=== PATIENT | male | born 1935 | race Caucasian/White ===

== ENCOUNTER 2019-08-02 17:07 | Emergency (ER) | payer MEDICARE, OTHER ==
[~2019-08-02] VITALS: Ht 177.8 cm; Wt 90.0 kg
--- NOTE | 2019-08-02 17:45 | NUR ---
KIANNA COY, DAUGHTER; [phone]. PLEASE CALL WHEN PT IS READY FOR DISCHARGE
[2019-08-02 18:44] LABS: BASOPHILS # (AUTO) 0.1 X10'3 (0-0.2); BASOPHILS % (AUTO) 0.7 % (0-1); EOSINOPHILS # (AUTO) 0.3 X10'3 (0-0.9); EOSINOPHILS % (AUTO) 4.1 % (0-6); HEMOGLOBIN 13.9 g/dl (14.0-17.9); LYMPHOCYTES # (AUTO) 3.4 X10'3 (1.1-4.8); MEAN CORPUSCULAR HEMOGLOBIN 32.2 PG (27.0-31.0); MEAN CORPUSCULAR HGB CONC 33.9 g/dL (33.0-36.5); MEAN CORPUSCULAR VOLUME 94.8 FL (78-98); MEAN PLATELET VOLUME 7.6 FL (7.4-10.4); MONOCYTES # (AUTO) 0.9 X10'3 (0-0.9); MONOCYTES % (AUTO) 10.5 % (2-12); NEUTROPHILS # (AUTO) 3.6 X10'3 (1.8-7.7); NEUTROPHILS % (AUTO) 43.7 % (42-75); PLATELET COUNT 302 X10'3 (140-440); RED BLOOD COUNT 4.33 X10'6 (4.70-6.10); RED CELL DISTRIBUTION WIDTH 13.9 % (11.5-14.5); WHITE BLOOD COUNT 8.3 X10'3 (4.5-11.0)
[2019-08-02 18:53] LABS: ALANINE AMINOTRANSFERASE 34 U/L (12-78); ALBUMIN 3.7 G/DL (3.4-5.0); ALBUMIN/GLOBULIN RATIO 1.1 (1.1-1.5); ALKALINE PHOSPHATASE 73 IU/L (46-116); ANION GAP 11 (8-16); ASPARTATE AMINO TRANSFERASE 37 U/L (10-37); BILIRUBIN,TOTAL 0.5 MG/DL (0.1-1.0); BLOOD UREA NITROGEN 16 MG/DL (7-18); BUN/CREATININE RATIO 16.5 (5.4-32.0); CALCIUM 9.1 MG/DL (8.5-10.1); CHLORIDE 99 MMOL/L (99-107); CREATININE 0.97 MG/DL (0.60-1.10); GLUCOSE 116 MG/DL (70-104); POTASSIUM 3.9 MMOL/L (3.5-5.1); SODIUM 133 MMOL/L (135-145); TOTAL CARBON DIOXIDE 23.3 MMOL/L (24-32); TOTAL PROTEIN 7.1 G/DL (6.4-8.2); eGFR 74 ML/MIN
[2019-08-02 19:25] VITALS: BP 145/70
== END 2019-08-02 19:25 | disposition home or self-care (01) ==
LOC: ER 17:08
DX: I10 Essential (primary) hypertension (principal); I25.10 Atherosclerotic heart disease of native coronary artery without angina pectoris
CPT/HCPCS: 36415; 71045; 80053; 83880; 84484; 85025; 93005; 99285

== ENCOUNTER 2023-02-17 16:34 | Emergency (ER) | payer MEDICARE, OTHER ==
[~2023-02-17] VITALS: Ht 175.3 cm; Wt 85.0 kg
[2023-02-17 16:45] VITALS: BP 114/63; PULSE 84; RESP 18; TEMP 97.8; O2SAT 98
[2023-02-17] MEDS ORDERED: benzonatate 100mg capsule PO ONE (18:40)
== END 2023-02-17 19:52 | disposition left against medical advice (07) ==
LOC: ER 16:34
DX: J06.9 Acute upper respiratory infection, unspecified (principal); Z20.822 Contact with and (suspected) exposure to COVID-19; I11.0 Hypertensive heart disease with heart failure
CPT/HCPCS: 36415; 71045; 87502; 87503; 87811; 99284

== ENCOUNTER 2023-02-18 15:28 | Inpatient (IN) | payer MEDICARE, OTHER ==
[~2023-02-18] VITALS: Ht 182.9 cm; Wt 84.0 kg
[2023-02-18 17:16] LABS: BASOPHILS % (AUTO) 0.3 % (0-1); EOSINOPHILS % (AUTO) 0 % (0-6); HEMATOCRIT 37.6 % (42.0-52.0); HEMOGLOBIN 12.7 g/dl (14.0-17.9); LYMPHOCYTES # (AUTO) 1.6 X10'3 (1.1-4.8); MEAN CORPUSCULAR HEMOGLOBIN 31.5 PG (27.0-31.0); MEAN CORPUSCULAR HGB CONC 33.8 g/dL (33.0-36.5); MEAN CORPUSCULAR VOLUME 93.2 FL (78-98); MEAN PLATELET VOLUME 7.9 FL (7.4-10.4); MONOCYTES # (AUTO) 1.5 X10'3 (0-0.9); MONOCYTES % (AUTO) 14.6 % (2-12); NEUTROPHILS # (AUTO) 7.1 X10'3 (1.8-7.7); NEUTROPHILS % (AUTO) 69.1 % (42-75); PLATELET COUNT 228 X10'3 (140-440); RED BLOOD COUNT 4.04 X10'6 (4.70-6.10); RED CELL DISTRIBUTION WIDTH 14.2 % (11.5-14.5); WHITE BLOOD COUNT 10.2 X10'3 (4.5-11.0)
[2023-02-18 17:36] LABS: ALANINE AMINOTRANSFERASE 18 U/L (12-78); ALBUMIN 3.1 G/DL (3.4-5.0); ALBUMIN/GLOBULIN RATIO 0.8 (1.1-1.5); ALKALINE PHOSPHATASE 95 IU/L (46-116); ANION GAP 6 (8-16); ASPARTATE AMINO TRANSFERASE 32 U/L (10-37); BILIRUBIN,TOTAL 0.7 MG/DL (0.1-1.0); BLOOD UREA NITROGEN 18 MG/DL (7-18); BUN/CREATININE RATIO 18.6 (10.0-20.0); CALCIUM 9.4 MG/DL (8.5-10.1); CHLORIDE 97 MMOL/L (99-107); CREATININE 0.97 MG/DL (0.60-1.10); GLUCOSE 154 MG/DL (70-104); POTASSIUM 3.8 MMOL/L (3.5-5.1); PRO BRAIN NATRIURETIC PEPTIDE 1267 PG/ML (0-450); SODIUM 130 MMOL/L (135-145); TOTAL CARBON DIOXIDE 27.1 MMOL/L (24-32); TOTAL PROTEIN 6.8 G/DL (6.4-8.2); eCRCL 61 ML/MIN; eGFR 74 ML/MIN
[2023-02-18] MEDS ORDERED: CefTRIAXone 2gm/D5W 50ml BAG 50 ML IV ONE (17:45)
[2023-02-18 18:13] LABS: MAGNESIUM 1.9 MG/DL (1.5-2.4)
[2023-02-19] VITALS (10 sets, daily range): BP systolic 113; BP diastolic 55; PULSE 78–97; RESP 12–22; TEMP 97.1; O2SAT 96–98
[2023-02-19] MEDS ORDERED: diphenhydrAMINE 50 mg/ml inj IV PRN (00:50)
[2023-02-19] MEDS ORDERED: acetaminophen 650mg rectal suppository RC PRN (00:50)
[2023-02-19] MEDS ORDERED: mag hydrox/Alum hydrox/simeth 30ml oral suspension PO PRN (00:50)
[2023-02-19] MEDS ORDERED: diphenhydrAMINE 25mg capsule PO PRN (00:50)
[2023-02-19] MEDS ORDERED: bisacodyl 10mg suppository rectal RC PRN (00:50)
[2023-02-19] MEDS ORDERED: magnesium hydroxide 30ml (MOM) UD suspension PO PRN (00:50)
[2023-02-19] MEDS ORDERED: acetaminophen 325mg tablet PO PRN ×2 (00:50)
[2023-02-19] MEDS ORDERED: ipratropium/albuterol 3ml nebule NEB PRN ×2 (00:50→08:40)
[2023-02-19] MEDS ORDERED: HYDROcodone/acetaminophen 5mg/325mg tablet PO PRN (00:50)
[2023-02-19] MEDS ORDERED: morphine 2 MG/ML inj. syringe IV PRN (00:50)
[2023-02-19] MEDS ORDERED: ondansetron/PF 4mg/2ml inj IV PRN (00:50)
[2023-02-19] MEDS ORDERED: ondansetron 4mg rapidly disintigrating tab PO PRN (00:50)
[2023-02-19] MEDS: normal saline 1000ml 1,000 ML IV SCH ×3 (01:37→23:57)
[2023-02-19 02:04] LABS: APTT 33 SECONDS (22-32); D-DIMER 1.49 MG/L FEU (0-0.50); INR 1.1 INR; PROTHROMBIN TIME 11.5 SECONDS (9.0-12.0)
[2023-02-19 02:13] LABS: MAGNESIUM 1.8 MG/DL (1.5-2.4); PHOSPHORUS 2.2 MG/DL (2.3-4.5)
[2023-02-19] MEDS: heparin, porcine 5000 units/ml vial SQ SCH ×2 (07:50→22:00)
[2023-02-19] MEDS: pantoprazole 40mg Tablet.DR PO SCH (07:50)
[2023-02-19] MEDS: docusate sod 100mg capsule PO SCH ×2 (07:50→22:00)
[2023-02-19] MEDS: CefTRIAXone/D5W-Rocephin 1gm 50 ML IV SCH (07:51)
[2023-02-19] MEDS ORDERED: CefTRIAXone 2gm/D5W 50ml BAG 50 ML IV SCH (08:00)
[2023-02-19] MEDS: azithromycin/NS 500mg/250ml 250 ML IV SCH (09:29)
[2023-02-19] MEDS: predniSONE 20 mg tablet PO SCH (09:29)
[2023-02-19 09:40] LABS: BILIRUBIN,URINE NEGATIVE (Neg); CLARITY,URINE SLIGHTLY CLOUDY (Clear); COLOR,URINE YELLOW (Yellow); GLUCOSE, URINE NEGATIVE (Neg); KETONES,URINE NEGATIVE (Neg); LEUKOCYTE ESTERASE ,URINE TRACE (Neg); NITRITES, URINE NEGATIVE (Neg); OCCULT BLOOD,URINE SMALL (Neg); PROTEIN,URINE TRACE mg/dl (Neg)
[2023-02-19 09:51] LABS: UA COLLECTION TYPE CLN CATCH MIDSTREAM
[2023-02-19 09:52] LABS: HYALINE CASTS 0-3 /LPF (NEGATIVE); MUCUS STRANDS MANY /LPF (Neg); SQUAMOUS EPITHELIAL CELL,UR MODERATE /LPF (FEW)
[2023-02-19 09:53] LABS: BACTERIA,URINE FEW /HPF (Neg)
[2023-02-19] MEDS ORDERED: FINA5TAB11 PO (10:00)
[2023-02-19] MEDS ORDERED: PITA4TAB2 PO ×2 (10:00→10:07)
[2023-02-19] MEDS ORDERED: IRBE300T18 PO (10:00)
[2023-02-19] MEDS ORDERED: FLO0.4C (10:00)
[2023-02-19] MEDS ORDERED: EZET10TA48 PO (10:00)
[2023-02-19] MEDS ORDERED: MEMA10TA56 PO (10:00)
[2023-02-19] MEDS ORDERED: APIX5TAB3 PO (10:00)
[2023-02-19] MEDS ORDERED: AMLO10TA13 PO (10:00)
[2023-02-19] MEDS ORDERED: LABE100T8 PO (10:00)
[2023-02-19] MEDS ORDERED: FLO0.4C PO (10:05)
[2023-02-19] MEDS: ipratropium/albuterol 3ml nebule NEB SCH ×3 (10:05→19:44)
[2023-02-19] MEDS ORDERED: IRBE150T51 PO (10:10)
[2023-02-19] MEDS ORDERED: temazepam 15mg capsule PO PRN (21:00)
[2023-02-20] VITALS (15 sets, daily range): BP systolic 101–128; BP diastolic 56–66; PULSE 64–86; RESP 12–19; TEMP 97.1–98; O2SAT 93–96
[2023-02-20] MEDS: ipratropium/albuterol 3ml nebule NEB SCH ×4 (01:48→19:46)
[2023-02-20] MEDS: normal saline 1000ml 1,000 ML IV SCH ×2 (06:05→18:01)
[2023-02-20 07:13] LABS: BASOPHILS % (AUTO) 0.4 % (0-1); EOSINOPHILS % (AUTO) 0 % (0-6); HEMATOCRIT 33.5 % (42.0-52.0); HEMOGLOBIN 11.5 g/dl (14.0-17.9); LYMPHOCYTES # (AUTO) 1.9 X10'3 (1.1-4.8); LYMPHOCYTES % (AUTO) 27.9 % (21-51); MEAN CORPUSCULAR HEMOGLOBIN 31.8 PG (27.0-31.0); MEAN CORPUSCULAR HGB CONC 34.5 g/dL (33.0-36.5); MEAN CORPUSCULAR VOLUME 92.3 FL (78-98); MEAN PLATELET VOLUME 8.9 FL (7.4-10.4); MONOCYTES # (AUTO) 0.8 X10'3 (0-0.9); MONOCYTES % (AUTO) 11.8 % (2-12); NEUTROPHILS # (AUTO) 4.2 X10'3 (1.8-7.7); NEUTROPHILS % (AUTO) 59.9 % (42-75); PLATELET COUNT 234 X10'3 (140-440); RED BLOOD COUNT 3.63 X10'6 (4.70-6.10); RED CELL DISTRIBUTION WIDTH 14.3 % (11.5-14.5)
[2023-02-20 07:37] LABS: ALANINE AMINOTRANSFERASE 17 U/L (12-78); ALBUMIN 2.3 G/DL (3.4-5.0); ALBUMIN/GLOBULIN RATIO 0.7 (1.1-1.5); ALKALINE PHOSPHATASE 82 IU/L (46-116); ANION GAP 7 (8-16); ASPARTATE AMINO TRANSFERASE 27 U/L (10-37); BILIRUBIN,TOTAL 0.3 MG/DL (0.1-1.0); BLOOD UREA NITROGEN 19 MG/DL (7-18); BUN/CREATININE RATIO 33.3 (10.0-20.0); CHLORIDE 104 MMOL/L (99-107); CREATININE 0.57 MG/DL (0.60-1.10); GLUCOSE 106 MG/DL (70-104); POTASSIUM 3.4 MMOL/L (3.5-5.1); SODIUM 136 MMOL/L (135-145); TOTAL PROTEIN 5.5 G/DL (6.4-8.2); eCRCL 104 ML/MIN; eGFR > 90 ML/MIN
[2023-02-20] MEDS: finasteride 5mg tablet PO SCH (08:00)
[2023-02-20] MEDS: docusate sod 100mg capsule PO SCH ×2 (08:04→19:06)
[2023-02-20] MEDS: CefTRIAXone/D5W-Rocephin 1gm 50 ML IV SCH (08:04)
[2023-02-20] MEDS: pantoprazole 40mg Tablet.DR PO SCH (08:09)
[2023-02-20] MEDS: predniSONE 20 mg tablet PO SCH (08:10)
[2023-02-20] MEDS: apixaban 5mg tablet PO SCH ×2 (08:10→19:06)
[2023-02-20] MEDS: tamsulosin 0.4mg capsule PO SCH ×2 (08:11→19:06)
[2023-02-20] MEDS: memantine 5mg tablet PO SCH ×2 (08:11→19:06)
[2023-02-20] MEDS: amLODIPine 5mg tablet PO SCH (08:12)
[2023-02-20] MEDS: ezetimibe 10mg tablet PO SCH (08:13)
[2023-02-20] MEDS: labetalol 100mg tablet PO SCH ×2 (08:13→19:06)
[2023-02-20] MEDS: azithromycin/NS 500mg/250ml 250 ML IV SCH (08:14)
[2023-02-20] MEDS ORDERED: losartan 50mg tablet PO SCH (21:00)
[2023-02-20] MEDS ORDERED: atorvastatin 20mg tablet PO SCH (21:00)
[2023-02-20 21:27] LABS: OCCULT BLOOD STOOL NEGATIVE (Neg)
[2023-02-21] VITALS (11 sets, daily range): BP systolic 117–132; BP diastolic 55–74; PULSE 63–92; RESP 9–17; TEMP 97.3–98.1; O2SAT 93–96
[2023-02-21] MEDS: ipratropium/albuterol 3ml nebule NEB SCH ×3 (02:49→13:48)
[2023-02-21 06:33] LABS: ALANINE AMINOTRANSFERASE 24 U/L (12-78); ALBUMIN 2.3 G/DL (3.4-5.0); ALBUMIN/GLOBULIN RATIO 0.7 (1.1-1.5); ALKALINE PHOSPHATASE 75 IU/L (46-116); ANION GAP 5 (8-16); ASPARTATE AMINO TRANSFERASE 26 U/L (10-37); BILIRUBIN,TOTAL 0.3 MG/DL (0.1-1.0); BLOOD UREA NITROGEN 19 MG/DL (7-18); BUN/CREATININE RATIO 28.4 (10.0-20.0); CALCIUM 9.1 MG/DL (8.5-10.1); CHLORIDE 107 MMOL/L (99-107); CREATININE 0.67 MG/DL (0.60-1.10); GLUCOSE 104 MG/DL (70-104); POTASSIUM 3.2 MMOL/L (3.5-5.1); SODIUM 138 MMOL/L (135-145); TOTAL CARBON DIOXIDE 26.3 MMOL/L (24-32); TOTAL PROTEIN 5.4 G/DL (6.4-8.2); eCRCL 88 ML/MIN; eGFR > 90 ML/MIN
[2023-02-21 06:52] LABS: BASOPHILS % (AUTO) 0.1 % (0-1); EOSINOPHILS % (AUTO) 0.1 % (0-6); HEMATOCRIT 34.1 % (42.0-52.0); HEMOGLOBIN 11.5 g/dl (14.0-17.9); LYMPHOCYTES # (AUTO) 2.4 X10'3 (1.1-4.8); LYMPHOCYTES % (AUTO) 26.4 % (21-51); MEAN CORPUSCULAR HEMOGLOBIN 31.4 PG (27.0-31.0); MEAN CORPUSCULAR HGB CONC 33.7 g/dL (33.0-36.5); MEAN CORPUSCULAR VOLUME 93.3 FL (78-98); MEAN PLATELET VOLUME 8.2 FL (7.4-10.4); MONOCYTES # (AUTO) 0.8 X10'3 (0-0.9); MONOCYTES % (AUTO) 8.7 % (2-12); NEUTROPHILS # (AUTO) 5.9 X10'3 (1.8-7.7); NEUTROPHILS % (AUTO) 64.7 % (42-75); PLATELET COUNT 295 X10'3 (140-440); RED BLOOD COUNT 3.66 X10'6 (4.70-6.10); RED CELL DISTRIBUTION WIDTH 14.1 % (11.5-14.5); WHITE BLOOD COUNT 9.1 X10'3 (4.5-11.0)
[2023-02-21] MEDS: docusate sod 100mg capsule PO SCH (08:00)
[2023-02-21] MEDS: finasteride 5mg tablet PO SCH (08:00)
[2023-02-21] MEDS: memantine 5mg tablet PO SCH (08:48)
[2023-02-21] MEDS: tamsulosin 0.4mg capsule PO SCH (08:48)
[2023-02-21] MEDS: labetalol 100mg tablet PO SCH (08:48)
[2023-02-21] MEDS: ezetimibe 10mg tablet PO SCH (08:48)
[2023-02-21] MEDS: amLODIPine 5mg tablet PO SCH (08:48)
[2023-02-21] MEDS: pantoprazole 40mg Tablet.DR PO SCH (08:49)
[2023-02-21] MEDS: predniSONE 20 mg tablet PO SCH (08:49)
[2023-02-21] MEDS: azithromycin/NS 500mg/250ml 250 ML IV SCH (08:52)
[2023-02-21] MEDS: CefTRIAXone/D5W-Rocephin 1gm 50 ML IV SCH (08:53)
[2023-02-21] MEDS: apixaban 5mg tablet PO SCH (08:57)
[2023-02-21] MEDS ORDERED: LACT1CAP74 PO (15:02)
[2023-02-21] MEDS ORDERED: CEFD300C3 PO (15:02)
[2023-02-21] MEDS ORDERED: PRED10TA23 PO (15:03)
== END 2023-02-21 16:00 | disposition home or self-care (01) | DRG 871 ==
LOC: ER 15:29 → ED HOLD 02-19 00:53 → PCU 3S 02-19 20:23
PROVIDERS: ADMIT Family Medicine; ATTEND Family Medicine
DX: A41.9 Sepsis, unspecified organism (principal); J18.9 Pneumonia, unspecified organism; J96.01 Acute respiratory failure with hypoxia; E87.1 Hypo-osmolality and hyponatremia; I48.20 Chronic atrial fibrillation, unspecified; I11.0 Hypertensive heart disease with heart failure; E88.09 Other disorders of plasma-protein metabolism, not elsewhere classified; I50.9 Heart failure, unspecified; I25.10 Atherosclerotic heart disease of native coronary artery without angina pectoris; F03.90 Unspecified dementia, unspecified severity, without behavioral disturbance, psychotic disturbance, mood disturbance, and anxiety; N40.0 Benign prostatic hyperplasia without lower urinary tract symptoms; E86.1 Hypovolemia; D64.9 Anemia, unspecified; Z79.01 Long term (current) use of anticoagulants; Z79.899 Other long term (current) drug therapy
CPT/HCPCS: 36415; 71046; 80053; 81001; 82272; 82948; 83605; 83735; 83880; 84100; 84145; 85025; 85379; 85610; 85730; 87040; 87081; 87088; 92508; 92616; 93306; 94640; 94760; 97116; 97161; 97530; 99285; G0378; J0456; J0696; J1644; J7030; J7512

== ENCOUNTER 2023-10-06 13:06 | Inpatient (IN) | payer MEDICARE ==
[~2023-10-06] VITALS: Ht 172.7 cm; Wt 83.2 kg
[~2023-10-06 13:06] MED LIST: AMLO10TA13 PO; APIX5TAB3 PO; EZET10TA48 PO; FINA5TAB11 PO; FLO0.4C PO; IRBE150T51 PO; LABE100T8 PO; LACT1CAP74 PO; MEMA10TA22 PO; PITA4TAB2 PO
[2023-10-06 13:58] LABS: BASOPHILS % (AUTO) 0.3 % (0-1); EOSINOPHILS # (AUTO) 0.1 X10'3 (0-0.9); EOSINOPHILS % (AUTO) 1.4 % (0-6); HEMATOCRIT 39.3 % (42.0-52.0); HEMOGLOBIN 13.2 g/dl (14.0-17.9); LYMPHOCYTES # (AUTO) 2.7 X10'3 (1.1-4.8); LYMPHOCYTES % (AUTO) 30.4 % (21-51); MEAN CORPUSCULAR HEMOGLOBIN 31.9 PG (27.0-31.0); MEAN CORPUSCULAR HGB CONC 33.6 g/dL (33.0-36.5); MEAN CORPUSCULAR VOLUME 95.1 FL (78-98); MEAN PLATELET VOLUME 8.6 FL (7.4-10.4); MONOCYTES # (AUTO) 0.9 X10'3 (0-0.9); MONOCYTES % (AUTO) 9.4 % (2-12); NEUTROPHILS # (AUTO) 5.3 X10'3 (1.8-7.7); NEUTROPHILS % (AUTO) 58.5 % (42-75); PLATELET COUNT 217 X10'3 (140-440); RED BLOOD COUNT 4.13 X10'6 (4.70-6.10); RED CELL DISTRIBUTION WIDTH 13.7 % (11.5-14.5)
[2023-10-06 14:11] LABS: ALANINE AMINOTRANSFERASE 35 U/L (12-78); ALBUMIN 3.6 G/DL (3.4-5.0); ALBUMIN/GLOBULIN RATIO 1.2 (1.1-1.5); ALKALINE PHOSPHATASE 80 IU/L (46-116); ANION GAP 8 (8-16); ASPARTATE AMINO TRANSFERASE 32 U/L (10-37); BILIRUBIN,TOTAL 0.7 MG/DL (0.1-1.0); BLOOD UREA NITROGEN 21 MG/DL (7-18); BUN/CREATININE RATIO 20.4 (10.0-20.0); CALCIUM 9.3 MG/DL (8.5-10.1); CHLORIDE 102 MMOL/L (99-107); CREATININE 1.03 MG/DL (0.60-1.10); GLUCOSE 104 MG/DL (70-104); LIPASE 78 U/L (16-77); SODIUM 135 MMOL/L (135-145); TOTAL CARBON DIOXIDE 25.4 MMOL/L (24-32); TOTAL PROTEIN 6.5 G/DL (6.4-8.2); eCRCL 50 ML/MIN; eGFR 68 ML/MIN
[2023-10-06] MEDS: LidoCAINE 2% Topical Jelly 11mL syringe (UROJET) TOP ONE (14:54)
[2023-10-06 15:22] LABS: BILIRUBIN,URINE NEGATIVE (Neg); CLARITY,URINE CLEAR (Clear); COLOR,URINE YELLOW (Yellow); GLUCOSE, URINE NEGATIVE (Neg); KETONES,URINE NEGATIVE (Neg); LEUKOCYTE ESTERASE ,URINE NEGATIVE (Neg); NITRITES, URINE NEGATIVE (Neg); OCCULT BLOOD,URINE NEGATIVE (Neg); PROTEIN,URINE NEGATIVE (Neg)
[2023-10-06 15:28] LABS: UA COLLECTION TYPE FOLEY CATH
[2023-10-06] MEDS ORDERED: acetaminophen 325mg tablet PO PRN (16:40)
[2023-10-06] MEDS ORDERED: morphine 2 MG/ML inj. syringe IV PRN (16:40)
[2023-10-06] MEDS ORDERED: mag hydrox/Alum hydrox/simeth 30ml oral suspension PO PRN (16:40)
[2023-10-06] MEDS ORDERED: magnesium hydroxide 30ml (MOM) UD suspension PO PRN (16:40)
[2023-10-06] MEDS ORDERED: ondansetron/PF 4mg/2ml inj IV PRN (16:40)
[2023-10-06] MEDS: morphine 2 MG/ML inj. syringe IV PRN (17:16)
[2023-10-06] MEDS: dextrose 5%-1/2 normal saline 1,000 ML IV SCH (17:17)
[2023-10-06 17:22] LABS: PRO BRAIN NATRIURETIC PEPTIDE 353 PG/ML (0-450)
[2023-10-06] MEDS: labetalol 100mg tablet PO SCH (20:00)
[2023-10-06] MEDS: docusate sod 100mg capsule PO SCH (20:00)
[2023-10-06] MEDS: normal saline 1000ml 1,000 ML IV SCH (20:02)
[2023-10-06] MEDS: memantine 5mg tablet PO SCH (21:09)
[2023-10-06] MEDS: tamsulosin 0.4mg capsule PO SCH (21:09)
[2023-10-06 21:16] VITALS: BP 124/70; PULSE 76; RESP 17; TEMP 98; O2SAT 96
[2023-10-06 21:45] VITALS: RESP 17; O2SAT 96
[2023-10-06] MEDS: losartan 50mg tablet PO SCH (22:30)
[2023-10-07] VITALS (7 sets, daily range): BP systolic 91–147; BP diastolic 47–79; PULSE 56–102; RESP 12–23; TEMP 97.4–98; O2SAT 93–97
[2023-10-07 06:03] LABS: BASOPHILS % (AUTO) 0.4 % (0-1); EOSINOPHILS # (AUTO) 0.2 X10'3 (0-0.9); EOSINOPHILS % (AUTO) 1.6 % (0-6); HEMATOCRIT 38.8 % (42.0-52.0); HEMOGLOBIN 13.2 g/dl (14.0-17.9); LYMPHOCYTES # (AUTO) 2.3 X10'3 (1.1-4.8); MEAN CORPUSCULAR HEMOGLOBIN 32.1 PG (27.0-31.0); MEAN CORPUSCULAR VOLUME 94.5 FL (78-98); MEAN PLATELET VOLUME 8.5 FL (7.4-10.4); MONOCYTES % (AUTO) 10.2 % (2-12); NEUTROPHILS # (AUTO) 6.7 X10'3 (1.8-7.7); NEUTROPHILS % (AUTO) 65.8 % (42-75); PLATELET COUNT 197 X10'3 (140-440); RED CELL DISTRIBUTION WIDTH 13.7 % (11.5-14.5); WHITE BLOOD COUNT 10.2 X10'3 (4.5-11.0)
[2023-10-07 06:11] LABS: ANION GAP 7 (8-16); BLOOD UREA NITROGEN 17 MG/DL (7-18); BUN/CREATININE RATIO 21.3 (10.0-20.0); CALCIUM 8.8 MG/DL (8.5-10.1); CHLORIDE 106 MMOL/L (99-107); GLUCOSE 98 MG/DL (70-104); POTASSIUM 3.8 MMOL/L (3.5-5.1); SODIUM 138 MMOL/L (135-145); TOTAL CARBON DIOXIDE 24.6 MMOL/L (24-32); eCRCL 64 ML/MIN; eGFR > 90 ML/MIN
[2023-10-07] MEDS: PITAVASTATIN CALCIUM PO SCH (08:00)
[2023-10-07] MEDS: finasteride 5mg tablet PO SCH (08:23)
[2023-10-07] MEDS: NYSTATIN CREAM - 30GM TUBE TP SCH (08:23)
[2023-10-07] MEDS: ezetimibe 10mg tablet PO SCH (08:24)
[2023-10-07] MEDS: acetaminophen 325mg tablet PO PRN (15:48)
[2023-10-07] MEDS: apixaban 5mg tablet PO SCH (20:56)
[2023-10-08 02:00] VITALS: BP 158/94; PULSE 70; RESP 17; TEMP 97.8; O2SAT 94
[2023-10-08 06:00] VITALS: BP 144/77; PULSE 63; RESP 12; TEMP 97.5; O2SAT 93
[2023-10-08 06:08] LABS: BASOPHILS % (AUTO) 0.2 % (0-1); EOSINOPHILS # (AUTO) 0.1 X10'3 (0-0.9); EOSINOPHILS % (AUTO) 1.1 % (0-6); HEMATOCRIT 37.9 % (42.0-52.0); HEMOGLOBIN 12.8 g/dl (14.0-17.9); LYMPHOCYTES # (AUTO) 2.6 X10'3 (1.1-4.8); LYMPHOCYTES % (AUTO) 24.5 % (21-51); MEAN CORPUSCULAR HEMOGLOBIN 31.9 PG (27.0-31.0); MEAN CORPUSCULAR HGB CONC 33.8 g/dL (33.0-36.5); MEAN CORPUSCULAR VOLUME 94.4 FL (78-98); MEAN PLATELET VOLUME 8.6 FL (7.4-10.4); MONOCYTES # (AUTO) 1.2 X10'3 (0-0.9); MONOCYTES % (AUTO) 11.4 % (2-12); NEUTROPHILS # (AUTO) 6.6 X10'3 (1.8-7.7); NEUTROPHILS % (AUTO) 62.8 % (42-75); PLATELET COUNT 188 X10'3 (140-440); RED BLOOD COUNT 4.02 X10'6 (4.70-6.10); RED CELL DISTRIBUTION WIDTH 13.5 % (11.5-14.5); WHITE BLOOD COUNT 10.5 X10'3 (4.5-11.0)
[2023-10-08 06:30] LABS: ALBUMIN 2.7 G/DL (3.4-5.0); ANION GAP 5 (8-16); BLOOD UREA NITROGEN 15 MG/DL (7-18); BUN/CREATININE RATIO 21.7 (10.0-20.0); CALCIUM 8.5 MG/DL (8.5-10.1); CHLORIDE 108 MMOL/L (99-107); CREATININE 0.69 MG/DL (0.60-1.10); GLUCOSE 103 MG/DL (70-104); POTASSIUM 3.6 MMOL/L (3.5-5.1); SODIUM 137 MMOL/L (135-145); THYROID STIMULATING HORMONE 2.15 ulU/ml (0.34-4.50); TOTAL CARBON DIOXIDE 23.8 MMOL/L (24-32); eCRCL 74 ML/MIN; eGFR > 90 ML/MIN
[2023-10-08 08:00] VITALS: RESP 12; O2SAT 93
[2023-10-08 11:00] VITALS: BP 119/66; PULSE 56; RESP 18; TEMP 97.8; O2SAT 96
== END 2023-10-08 15:19 | disposition home health service (06) | DRG 725 ==
LOC: ER 13:07 → ED HOLD 16:45 → UNDOADMIN 17:28 → ED HOLD 17:28 → PCU 3S 21:16
PROVIDERS: ADMIT Internal Medicine; ATTEND Internal Medicine
DX: N40.1 Benign prostatic hyperplasia with lower urinary tract symptoms (principal); G93.41 Metabolic encephalopathy; N17.9 Acute kidney failure, unspecified; T83.83XA Hemorrhage due to genitourinary prosthetic devices, implants and grafts, initial encounter; R33.8 Other retention of urine; F03.90 Unspecified dementia, unspecified severity, without behavioral disturbance, psychotic disturbance, mood disturbance, and anxiety; I25.10 Atherosclerotic heart disease of native coronary artery without angina pectoris; I10 Essential (primary) hypertension; Z79.01 Long term (current) use of anticoagulants; Z79.899 Other long term (current) drug therapy; Y84.9 Medical procedure, unspecified as the cause of abnormal reaction of the patient, or of later complication, without mention of misadventure at the time of the procedure; Y92.238 Other place in hospital as the place of occurrence of the external cause
CPT/HCPCS: 36415; 70450; 76770; 80048; 80053; 81003; 82948; 83690; 83880; 84443; 85025; 87081; 97161; 97530; 97535; 99285; A4314; A4338; A4340; A4358; A5200; A6223; A6250; A6253; A6449; C1758; G0378; J2270; J7030

== ENCOUNTER 2023-10-12 08:18 | Emergency (ER) | payer MEDICARE ==
[~2023-10-12] VITALS: Ht 182.9 cm; Wt 85.1 kg
[2023-10-12 09:33] LABS: BASOPHILS % (AUTO) 0.1 % (0-1); EOSINOPHILS # (AUTO) 0.1 X10'3 (0-0.9); EOSINOPHILS % (AUTO) 0.8 % (0-6); HEMATOCRIT 41.5 % (42.0-52.0); LYMPHOCYTES # (AUTO) 1.7 X10'3 (1.1-4.8); LYMPHOCYTES % (AUTO) 15.3 % (21-51); MEAN CORPUSCULAR HEMOGLOBIN 32.2 PG (27.0-31.0); MEAN CORPUSCULAR HGB CONC 33.9 g/dL (33.0-36.5); MONOCYTES # (AUTO) 1.1 X10'3 (0-0.9); MONOCYTES % (AUTO) 9.9 % (2-12); NEUTROPHILS % (AUTO) 73.9 % (42-75); PLATELET COUNT 273 X10'3 (140-440); RED BLOOD COUNT 4.36 X10'6 (4.70-6.10); RED CELL DISTRIBUTION WIDTH 13.7 % (11.5-14.5); WHITE BLOOD COUNT 10.8 X10'3 (4.5-11.0)
[2023-10-12 09:39] LABS: CLARITY,URINE TURBID (Clear); COLOR,URINE AMBER (Yellow)
[2023-10-12 09:58] LABS: ALANINE AMINOTRANSFERASE 27 U/L (12-78); ALBUMIN 2.8 G/DL (3.4-5.0); ALBUMIN/GLOBULIN RATIO 0.8 (1.1-1.5); ALKALINE PHOSPHATASE 98 IU/L (46-116); ANION GAP 6 (8-16); ASPARTATE AMINO TRANSFERASE 25 U/L (10-37); BILIRUBIN,TOTAL 0.7 MG/DL (0.1-1.0); BLOOD UREA NITROGEN 19 MG/DL (7-18); BUN/CREATININE RATIO 22.1 (10.0-20.0); CALCIUM 9.3 MG/DL (8.5-10.1); CHLORIDE 106 MMOL/L (99-107); CREATININE 0.86 MG/DL (0.60-1.10); GLUCOSE 115 MG/DL (70-104); SODIUM 138 MMOL/L (135-145); TOTAL CARBON DIOXIDE 26.3 MMOL/L (24-32); TOTAL PROTEIN 6.1 G/DL (6.4-8.2); eCRCL 68 ML/MIN; eGFR 84 ML/MIN
[2023-10-12 10:11] LABS: UA COLLECTION TYPE FOLEY CATH
[2023-10-12 10:13] LABS: MUCUS STRANDS MANY /LPF (Neg); SQUAMOUS EPITHELIAL CELL,UR FEW /LPF (FEW)
[2023-10-12] MEDS: ondansetron/PF 4mg/2ml inj IV ONE (10:20)
[2023-10-12] MEDS: morphine 4 MG/ML inj SYRINge IV ONE (10:21)
[2023-10-12 10:25] LABS: TRIPLE PHOSPHATE CRYST 4+ /HPF (NEGATIVE)
[2023-10-12 10:26] LABS: AMORPHOUS PHOSPHATES 3+; RBC,URINE 20-50 /HPF (0-2)
[2023-10-12 10:27] LABS: WBC,URINE 0-4 /HPF (0-4)
[2023-10-12 10:28] LABS: BACTERIA,URINE FEW /HPF (Neg)
[2023-10-12 13:32] VITALS: BP 127/64; PULSE 86; RESP 16; TEMP 97.6; O2SAT 95
== END 2023-10-12 13:38 | disposition home or self-care (01) ==
LOC: ER 08:19
DX: T83.038A Leakage of other urinary catheter, initial encounter (principal); I25.10 Atherosclerotic heart disease of native coronary artery without angina pectoris; I10 Essential (primary) hypertension; Z72.89 Other problems related to lifestyle; Z60.2 Problems related to living alone; Z79.899 Other long term (current) drug therapy
CPT/HCPCS: 36415; 51702; 80053; 81001; 85025; 96374; 96375; 99284; J2270; J2405; A4314; A4340

== ENCOUNTER 2023-10-24 20:40 | Inpatient (IN) | payer MEDICARE ==
[~2023-10-24] VITALS: Ht 182.9 cm; Wt 86.0 kg
[~2023-10-24 20:40] MED LIST changes: -AMLO10TA13 PO; -LACT1CAP74 PO
[2023-10-24] MEDS ORDERED: iohexol 300mg/ml 100ml inj. ONE (21:10)
[2023-10-24] MEDS: piperacillin/tazo 3.375gm/50ml 50 ML IV SCH (21:14)
[2023-10-24 21:39] LABS: BASOPHILS # (AUTO) 0.1 X10'3 (0-0.2); BASOPHILS % (AUTO) 0.6 % (0-1); EOSINOPHILS # (AUTO) 0.2 X10'3 (0-0.9); EOSINOPHILS % (AUTO) 1.8 % (0-6); HEMATOCRIT 34.1 % (42.0-52.0); HEMOGLOBIN 11.2 g/dl (14.0-17.9); LYMPHOCYTES # (AUTO) 3.4 X10'3 (1.1-4.8); LYMPHOCYTES % (AUTO) 24.9 % (21-51); MEAN CORPUSCULAR HEMOGLOBIN 31.1 PG (27.0-31.0); MEAN CORPUSCULAR HGB CONC 32.9 g/dL (33.0-36.5); MEAN CORPUSCULAR VOLUME 94.4 FL (78-98); MEAN PLATELET VOLUME 8.1 FL (7.4-10.4); MONOCYTES # (AUTO) 1.3 X10'3 (0-0.9); MONOCYTES % (AUTO) 9.3 % (2-12); NEUTROPHILS # (AUTO) 8.7 X10'3 (1.8-7.7); NEUTROPHILS % (AUTO) 63.4 % (42-75); PLATELET COUNT 408 X10'3 (140-440); RED BLOOD COUNT 3.61 X10'6 (4.70-6.10); RED CELL DISTRIBUTION WIDTH 13.6 % (11.5-14.5); WHITE BLOOD COUNT 13.7 X10'3 (4.5-11.0)
[2023-10-24 21:58] LABS: ALANINE AMINOTRANSFERASE 19 U/L (12-78); ALBUMIN 2.5 G/DL (3.4-5.0); ALBUMIN/GLOBULIN RATIO 0.7 (1.1-1.5); ALKALINE PHOSPHATASE 95 IU/L (46-116); ANION GAP 10 (8-16); ASPARTATE AMINO TRANSFERASE 28 U/L (10-37); BILIRUBIN,TOTAL 0.4 MG/DL (0.1-1.0); BLOOD UREA NITROGEN 30 MG/DL (7-18); BUN/CREATININE RATIO 25.2 (10.0-20.0); CALCIUM 9.1 MG/DL (8.5-10.1); CHLORIDE 107 MMOL/L (99-107); CREATININE 1.19 MG/DL (0.60-1.10); GLUCOSE 99 MG/DL (70-104); POTASSIUM 3.8 MMOL/L (3.5-5.1); SODIUM 141 MMOL/L (135-145); TOTAL CARBON DIOXIDE 24.1 MMOL/L (24-32); TOTAL PROTEIN 5.9 G/DL (6.4-8.2); eCRCL 49 ML/MIN; eGFR 58 ML/MIN
[2023-10-24] MEDS: normal saline 1000ML IV soln IVB ONE (22:08)
[2023-10-24] MEDS ORDERED: magnesium hydroxide 30ml (MOM) UD suspension PO PRN (23:45)
[2023-10-24] MEDS ORDERED: potassium Cl 20 mEq SR tablet PO PRN (23:45)
[2023-10-24] MEDS ORDERED: magnesium Cl slow-release 64mg tablet PO PRN (23:45)
[2023-10-24] MEDS ORDERED: mag hydrox/Alum hydrox/simeth 30ml oral suspension PO PRN (23:45)
[2023-10-24] MEDS ORDERED: potassium Cl 40MEQ/1/2NS 520ml 520 ML IV PRN (23:45)
[2023-10-24] MEDS ORDERED: magnesium sulf-water 2g/50mL 50 ML IV PRN (23:45)
[2023-10-24] MEDS ORDERED: acetaminophen 325mg tablet PO PRN (23:45)
[2023-10-24] MEDS ORDERED: magnesium sulf-water 4G/100mL 100 ML IV PRN (23:45)
[2023-10-24] MEDS ORDERED: ondansetron/PF 4mg/2ml inj IV PRN (23:45)
[2023-10-25] VITALS (7 sets, daily range): BP systolic 109–131; BP diastolic 55–92; PULSE 60–74; RESP 12–20; TEMP 97.3–98.2; O2SAT 92–96
[2023-10-25] MEDS: normal saline 1000ml 1,000 ML IV SCH (01:54)
[2023-10-25] MEDS: K and/or MAG REPLACEMENT MC SCH (08:00)
[2023-10-25 08:02] LABS: BASOPHILS % (AUTO) 0.4 % (0-1); EOSINOPHILS # (AUTO) 0.3 X10'3 (0-0.9); EOSINOPHILS % (AUTO) 3.5 % (0-6); HEMATOCRIT 31.6 % (42.0-52.0); HEMOGLOBIN 10.4 g/dl (14.0-17.9); LYMPHOCYTES # (AUTO) 3.1 X10'3 (1.1-4.8); LYMPHOCYTES % (AUTO) 35.6 % (21-51); MEAN CORPUSCULAR HEMOGLOBIN 31.4 PG (27.0-31.0); MEAN CORPUSCULAR VOLUME 95.2 FL (78-98); MEAN PLATELET VOLUME 7.9 FL (7.4-10.4); MONOCYTES # (AUTO) 0.8 X10'3 (0-0.9); MONOCYTES % (AUTO) 9.4 % (2-12); NEUTROPHILS # (AUTO) 4.4 X10'3 (1.8-7.7); NEUTROPHILS % (AUTO) 51.1 % (42-75); PLATELET COUNT 387 X10'3 (140-440); RED BLOOD COUNT 3.32 X10'6 (4.70-6.10); RED CELL DISTRIBUTION WIDTH 14.2 % (11.5-14.5); WHITE BLOOD COUNT 8.6 X10'3 (4.5-11.0)
[2023-10-25 08:23] LABS: ALBUMIN 2.3 G/DL (3.4-5.0); ANION GAP 8 (8-16); BLOOD UREA NITROGEN 26 MG/DL (7-18); BUN/CREATININE RATIO 29.5 (10.0-20.0); CALCIUM 8.7 MG/DL (8.5-10.1); CHLORIDE 109 MMOL/L (99-107); CREATININE 0.88 MG/DL (0.60-1.10); GLUCOSE 84 MG/DL (70-104); MAGNESIUM 1.8 MG/DL (1.5-2.4); PHOSPHORUS 2.8 MG/DL (2.3-4.5); POTASSIUM 3.7 MMOL/L (3.5-5.1); SODIUM 143 MMOL/L (135-145); TOTAL CARBON DIOXIDE 25.8 MMOL/L (24-32); eCRCL 66 ML/MIN; eGFR 82 ML/MIN
[2023-10-25] MEDS: piperacillin/tazo 4.5gm/100ml 100 ML IV SCH (08:25)
[2023-10-25] MEDS: tamsulosin 0.4mg capsule PO SCH (08:25)
[2023-10-25] MEDS: apixaban 5mg tablet PO SCH (08:25)
[2023-10-25] MEDS: docusate sod 100mg capsule PO SCH (08:26)
[2023-10-25] MEDS: finasteride 5mg tablet PO SCH (08:26)
[2023-10-25] MEDS: diazepam inj 5 MG/ML inj. IV PRN (10:54)
[2023-10-26 06:00] VITALS: BP 123/67; PULSE 55; RESP 14; TEMP 97.4; O2SAT 96
[2023-10-26 06:11] LABS: BASOPHILS % (AUTO) 0.5 % (0-1); EOSINOPHILS # (AUTO) 0.4 X10'3 (0-0.9); EOSINOPHILS % (AUTO) 4.7 % (0-6); HEMATOCRIT 31.3 % (42.0-52.0); HEMOGLOBIN 10.5 g/dl (14.0-17.9); LYMPHOCYTES # (AUTO) 3.2 X10'3 (1.1-4.8); LYMPHOCYTES % (AUTO) 34.6 % (21-51); MEAN CORPUSCULAR HEMOGLOBIN 31.7 PG (27.0-31.0); MEAN CORPUSCULAR HGB CONC 33.5 g/dL (33.0-36.5); MEAN CORPUSCULAR VOLUME 94.6 FL (78-98); MEAN PLATELET VOLUME 7.9 FL (7.4-10.4); MONOCYTES # (AUTO) 0.8 X10'3 (0-0.9); MONOCYTES % (AUTO) 8.5 % (2-12); NEUTROPHILS # (AUTO) 4.8 X10'3 (1.8-7.7); NEUTROPHILS % (AUTO) 51.7 % (42-75); PLATELET COUNT 400 X10'3 (140-440); RED BLOOD COUNT 3.31 X10'6 (4.70-6.10); RED CELL DISTRIBUTION WIDTH 13.7 % (11.5-14.5); WHITE BLOOD COUNT 9.3 X10'3 (4.5-11.0)
[2023-10-26 06:18] LABS: ALBUMIN 2.3 G/DL (3.4-5.0); ANION GAP 8 (8-16); BLOOD UREA NITROGEN 14 MG/DL (7-18); BUN/CREATININE RATIO 18.7 (10.0-20.0); CALCIUM 8.2 MG/DL (8.5-10.1); CHLORIDE 110 MMOL/L (99-107); CREATININE 0.75 MG/DL (0.60-1.10); GLUCOSE 90 MG/DL (70-104); MAGNESIUM 1.7 MG/DL (1.5-2.4); PHOSPHORUS 2.8 MG/DL (2.3-4.5); POTASSIUM 3.3 MMOL/L (3.5-5.1); SODIUM 141 MMOL/L (135-145); TOTAL CARBON DIOXIDE 23.4 MMOL/L (24-32); eCRCL 78 ML/MIN; eGFR > 90 ML/MIN
[2023-10-26] MEDS: potassium Cl 20 mEq SR tablet PO PRN (07:10)
[2023-10-26 10:00] VITALS: BP 106/48; PULSE 72; RESP 14; TEMP 97.6; O2SAT 93
[2023-10-26] MEDS: lactose-reduced food (Ensure Enlive) - 237ml bottle PO SCH (14:14)
[2023-10-26] MEDS ORDERED: mineral oil 133ml enema RC PRN (15:35)
[2023-10-26] MEDS: magnesium citrate 296ml oral solution PO ONE (16:28)
[2023-10-26 18:00] VITALS: BP 127/61; PULSE 79; RESP 16; TEMP 97.7; O2SAT 96
[2023-10-26] MEDS: lactulose 20gm/30ml cup PO SCH (19:39)
[2023-10-26 20:00] VITALS: RESP 16; O2SAT 96
[2023-10-26] MEDS: polyethylene glycol 3350 17gm powd pack PO SCH (21:00)
[2023-10-26 22:00] VITALS: BP 136/78; PULSE 71; RESP 16; TEMP 98.4; O2SAT 96
[2023-10-27 04:52] LABS: BASOPHILS # (AUTO) 0.1 X10'3 (0-0.2); BASOPHILS % (AUTO) 0.7 % (0-1); EOSINOPHILS # (AUTO) 0.3 X10'3 (0-0.9); EOSINOPHILS % (AUTO) 3.5 % (0-6); HEMATOCRIT 31.5 % (42.0-52.0); HEMOGLOBIN 10.6 g/dl (14.0-17.9); LYMPHOCYTES # (AUTO) 2.9 X10'3 (1.1-4.8); LYMPHOCYTES % (AUTO) 33.2 % (21-51); MEAN CORPUSCULAR HEMOGLOBIN 31.6 PG (27.0-31.0); MEAN CORPUSCULAR HGB CONC 33.5 g/dL (33.0-36.5); MEAN CORPUSCULAR VOLUME 94.6 FL (78-98); MEAN PLATELET VOLUME 8.1 FL (7.4-10.4); MONOCYTES # (AUTO) 0.9 X10'3 (0-0.9); MONOCYTES % (AUTO) 9.7 % (2-12); NEUTROPHILS # (AUTO) 4.6 X10'3 (1.8-7.7); NEUTROPHILS % (AUTO) 52.9 % (42-75); PLATELET COUNT 398 X10'3 (140-440); RED BLOOD COUNT 3.33 X10'6 (4.70-6.10); RED CELL DISTRIBUTION WIDTH 13.9 % (11.5-14.5); WHITE BLOOD COUNT 8.8 X10'3 (4.5-11.0)
[2023-10-27 05:09] LABS: ALBUMIN 2.1 G/DL (3.4-5.0); ANION GAP 5 (8-16); BLOOD UREA NITROGEN 10 MG/DL (7-18); BUN/CREATININE RATIO 14.1 (10.0-20.0); CALCIUM 8.4 MG/DL (8.5-10.1); CHLORIDE 112 MMOL/L (99-107); CREATININE 0.71 MG/DL (0.60-1.10); GLUCOSE 89 MG/DL (70-104); MAGNESIUM 1.7 MG/DL (1.5-2.4); PHOSPHORUS 2.1 MG/DL (2.3-4.5); POTASSIUM 3.6 MMOL/L (3.5-5.1); SODIUM 142 MMOL/L (135-145); TOTAL CARBON DIOXIDE 24.8 MMOL/L (24-32); eCRCL 82 ML/MIN; eGFR > 90 ML/MIN
[2023-10-27 08:00] VITALS: RESP 12; O2SAT 96
[2023-10-27] MEDS ORDERED: sodium phosphate inj. 15 MMOL in dextrose 5%-water 250 ML IV PRN (09:10)
[2023-10-27] MEDS ORDERED: sodium phosphate inj. 30 MMOL in dextrose 5%-water 250 ML IV PRN (09:10)
[2023-10-27 10:00] VITALS: BP 114/61; PULSE 79; RESP 15; TEMP 98.2; O2SAT 97
[2023-10-27] MEDS: Neutra Phos packet PO PRN (10:12)
[2023-10-27 11:48] VITALS: BP 145/67; PULSE 75; RESP 16; TEMP 97; O2SAT 96
[2023-10-27 18:00] VITALS: BP 146/77; PULSE 52; PULSE 80; RESP 14; RESP 16; TEMP 97.9; TEMP 98.1; O2SAT 96
[2023-10-27 22:00] VITALS: BP 149/78; PULSE 76; PULSE 82; RESP 13; RESP 15; TEMP 97.3; TEMP 97.9; O2SAT 96; O2SAT 99
[2023-10-28 06:00] VITALS: BP 148/77; PULSE 63; RESP 16; TEMP 96.8; O2SAT 96
[2023-10-28 07:30] VITALS: RESP 14
[2023-10-28 07:36] LABS: BASOPHILS # (AUTO) 0.1 X10'3 (0-0.2); BASOPHILS % (AUTO) 0.5 % (0-1); EOSINOPHILS # (AUTO) 0.3 X10'3 (0-0.9); HEMATOCRIT 33.3 % (42.0-52.0); LYMPHOCYTES # (AUTO) 2.2 X10'3 (1.1-4.8); MEAN CORPUSCULAR HEMOGLOBIN 31.3 PG (27.0-31.0); MEAN CORPUSCULAR HGB CONC 33.1 g/dL (33.0-36.5); MEAN CORPUSCULAR VOLUME 94.5 FL (78-98); MEAN PLATELET VOLUME 7.7 FL (7.4-10.4); MONOCYTES # (AUTO) 0.8 X10'3 (0-0.9); MONOCYTES % (AUTO) 8.7 % (2-12); NEUTROPHILS # (AUTO) 6.1 X10'3 (1.8-7.7); NEUTROPHILS % (AUTO) 64.8 % (42-75); PLATELET COUNT 394 X10'3 (140-440); RED BLOOD COUNT 3.52 X10'6 (4.70-6.10); RED CELL DISTRIBUTION WIDTH 13.7 % (11.5-14.5); WHITE BLOOD COUNT 9.5 X10'3 (4.5-11.0)
[2023-10-28 07:50] LABS: ALBUMIN 2.3 G/DL (3.4-5.0); ANION GAP 3 (8-16); BLOOD UREA NITROGEN 4 MG/DL (7-18); BUN/CREATININE RATIO 6.1 (10.0-20.0); CALCIUM 8.3 MG/DL (8.5-10.1); CHLORIDE 108 MMOL/L (99-107); CREATININE 0.66 MG/DL (0.60-1.10); GLUCOSE 84 MG/DL (70-104); MAGNESIUM 1.8 MG/DL (1.5-2.4); PHOSPHORUS 2.3 MG/DL (2.3-4.5); POTASSIUM 3.6 MMOL/L (3.5-5.1); SODIUM 138 MMOL/L (135-145); TOTAL CARBON DIOXIDE 27.5 MMOL/L (24-32); eCRCL 88 ML/MIN; eGFR > 90 ML/MIN
[2023-10-28 14:00] VITALS: BP 141/84; PULSE 74; RESP 14; TEMP 96.7; O2SAT 95
[2023-10-28 17:45] VITALS: BP 161/89; PULSE 73; RESP 14; TEMP 98.2; O2SAT 94
[2023-10-28 22:00] VITALS: BP 143/77; PULSE 104; RESP 18; TEMP 97.9; O2SAT 96
[2023-10-29 06:46] VITALS: BP 135/67; PULSE 63; RESP 13; TEMP 98.9; O2SAT 95
[2023-10-29 08:00] VITALS: RESP 16; O2SAT 98
[2023-10-29 09:21] LABS: BASOPHILS # (AUTO) 0.1 X10'3 (0-0.2); BASOPHILS % (AUTO) 0.7 % (0-1); EOSINOPHILS # (AUTO) 0.2 X10'3 (0-0.9); EOSINOPHILS % (AUTO) 2.4 % (0-6); HEMATOCRIT 35.3 % (42.0-52.0); LYMPHOCYTES # (AUTO) 1.8 X10'3 (1.1-4.8); LYMPHOCYTES % (AUTO) 19.4 % (21-51); MEAN CORPUSCULAR HEMOGLOBIN 32.1 PG (27.0-31.0); MEAN CORPUSCULAR HGB CONC 34.1 g/dL (33.0-36.5); MEAN CORPUSCULAR VOLUME 94.1 FL (78-98); MEAN PLATELET VOLUME 7.8 FL (7.4-10.4); MONOCYTES # (AUTO) 0.7 X10'3 (0-0.9); MONOCYTES % (AUTO) 7.8 % (2-12); NEUTROPHILS # (AUTO) 6.5 X10'3 (1.8-7.7); NEUTROPHILS % (AUTO) 69.7 % (42-75); PLATELET COUNT 389 X10'3 (140-440); RED BLOOD COUNT 3.75 X10'6 (4.70-6.10); RED CELL DISTRIBUTION WIDTH 13.8 % (11.5-14.5); WHITE BLOOD COUNT 9.4 X10'3 (4.5-11.0)
[2023-10-29 09:33] LABS: ALBUMIN 2.4 G/DL (3.4-5.0); ANION GAP 5 (8-16); BLOOD UREA NITROGEN 4 MG/DL (7-18); BUN/CREATININE RATIO 6.5 (10.0-20.0); CALCIUM 8.5 MG/DL (8.5-10.1); CHLORIDE 106 MMOL/L (99-107); CREATININE 0.62 MG/DL (0.60-1.10); GLUCOSE 101 MG/DL (70-104); MAGNESIUM 1.7 MG/DL (1.5-2.4); PHOSPHORUS 2.2 MG/DL (2.3-4.5); POTASSIUM 3.4 MMOL/L (3.5-5.1); SODIUM 138 MMOL/L (135-145); TOTAL CARBON DIOXIDE 27.2 MMOL/L (24-32); eCRCL 94 ML/MIN; eGFR > 90 ML/MIN
[2023-10-29] MEDS ORDERED: potassium Cl 20 mEq SR tablet PO PRN (15:30)
[2023-10-29] MEDS ORDERED: magnesium sulf-water 2g/50mL 50 ML IV PRN (15:30)
[2023-10-29] MEDS ORDERED: potassium Cl 40MEQ/1/2NS 520ml 520 ML IV PRN (15:30)
[2023-10-29] MEDS ORDERED: magnesium sulf-water 4G/100mL 100 ML IV PRN (15:30)
[2023-10-29] MEDS: potassium Cl 20 mEq SR tablet PO PRN (15:54)
[2023-10-29 18:00] VITALS: BP 148/72; PULSE 66; RESP 20; TEMP 98.3; O2SAT 97
[2023-10-29] MEDS: K and/or MAG REPLACEMENT MC SCH (20:00)
[2023-10-29 22:00] VITALS: BP 102/72; PULSE 80; RESP 16; TEMP 98.6; O2SAT 97
[2023-10-30 06:00] VITALS: BP 142/70; PULSE 63; RESP 16; TEMP 97.8; O2SAT 97
[2023-10-30 08:00] VITALS: RESP 17; O2SAT 97
[2023-10-30 08:58] LABS: BASOPHILS # (AUTO) 0.1 X10'3 (0-0.2); BASOPHILS % (AUTO) 0.7 % (0-1); EOSINOPHILS # (AUTO) 0.3 X10'3 (0-0.9); EOSINOPHILS % (AUTO) 3.4 % (0-6); HEMATOCRIT 33.7 % (42.0-52.0); HEMOGLOBIN 11.4 g/dl (14.0-17.9); LYMPHOCYTES # (AUTO) 2.2 X10'3 (1.1-4.8); LYMPHOCYTES % (AUTO) 28.7 % (21-51); MEAN CORPUSCULAR HEMOGLOBIN 31.8 PG (27.0-31.0); MEAN CORPUSCULAR HGB CONC 33.9 g/dL (33.0-36.5); MONOCYTES # (AUTO) 0.8 X10'3 (0-0.9); MONOCYTES % (AUTO) 10.3 % (2-12); NEUTROPHILS # (AUTO) 4.3 X10'3 (1.8-7.7); NEUTROPHILS % (AUTO) 56.9 % (42-75); PLATELET COUNT 382 X10'3 (140-440); RED BLOOD COUNT 3.59 X10'6 (4.70-6.10); RED CELL DISTRIBUTION WIDTH 14.1 % (11.5-14.5); WHITE BLOOD COUNT 7.6 X10'3 (4.5-11.0)
[2023-10-30 09:13] LABS: ALANINE AMINOTRANSFERASE 18 U/L (12-78); ALBUMIN 2.4 G/DL (3.4-5.0); ALBUMIN/GLOBULIN RATIO 0.8 (1.1-1.5); ALKALINE PHOSPHATASE 102 IU/L (46-116); ANION GAP 8 (8-16); ASPARTATE AMINO TRANSFERASE 22 U/L (10-37); BILIRUBIN,TOTAL 0.3 MG/DL (0.1-1.0); BLOOD UREA NITROGEN 6 MG/DL (7-18); BUN/CREATININE RATIO 9.8 (10.0-20.0); CALCIUM 8.5 MG/DL (8.5-10.1); CHLORIDE 107 MMOL/L (99-107); CREATININE 0.61 MG/DL (0.60-1.10); GLUCOSE 83 MG/DL (70-104); MAGNESIUM 1.7 MG/DL (1.5-2.4); POTASSIUM 3.9 MMOL/L (3.5-5.1); SODIUM 139 MMOL/L (135-145); TOTAL CARBON DIOXIDE 24.4 MMOL/L (24-32); TOTAL PROTEIN 5.4 G/DL (6.4-8.2); eCRCL 95 ML/MIN; eGFR > 90 ML/MIN
[2023-10-30 10:00] VITALS: BP 99/51; PULSE 84; RESP 14; TEMP 97.7; O2SAT 93
[2023-10-30 18:00] VITALS: BP 135/57; PULSE 75; RESP 14; TEMP 98.2; O2SAT 90
[2023-10-30 22:00] VITALS: BP 142/76; PULSE 76; RESP 16; TEMP 98.6; O2SAT 96
[2023-10-31 06:18] VITALS: BP 136/68; PULSE 64; RESP 16; TEMP 97.4; O2SAT 98
[2023-10-31 08:00] VITALS: RESP 16; O2SAT 98
[2023-10-31 10:02] VITALS: BP 132/70; PULSE 61; RESP 14; TEMP 97.1; O2SAT 91
[2023-10-31 18:00] VITALS: BP 146/74; PULSE 91; RESP 14; TEMP 97.2; O2SAT 96
[2023-10-31 22:00] VITALS: BP 146/74; PULSE 78; RESP 16; TEMP 98.4; O2SAT 97
[2023-11-01] VITALS (7 sets, daily range): BP systolic 124–157; BP diastolic 54–80; PULSE 61–98; RESP 14–16; TEMP 97.7–98.6; O2SAT 94–97
[2023-11-02 06:40] VITALS: BP 146/71; PULSE 65; RESP 14; TEMP 97.3; O2SAT 97
[2023-11-02 08:00] VITALS: RESP 16
[2023-11-02 11:15] VITALS: BP 134/70; PULSE 43; RESP 14; TEMP 97.9; O2SAT 94
[2023-11-02 18:00] VITALS: BP 159/80; PULSE 70; RESP 14; TEMP 97.6; O2SAT 95
[2023-11-02 20:12] VITALS: RESP 14; O2SAT 95
[2023-11-02 22:04] VITALS: BP 143/82; PULSE 67; RESP 14; TEMP 97.1; O2SAT 95
[2023-11-03 06:00] VITALS: BP 154/79; PULSE 72; RESP 14; TEMP 96.2; O2SAT 95
[2023-11-03 08:00] VITALS: RESP 14; O2SAT 95
[2023-11-03 10:00] VITALS: BP 107/66; PULSE 56; RESP 14; TEMP 97.6; O2SAT 97
== END 2023-11-03 12:45 | disposition home health service (06) | DRG 698 ==
LOC: ER 20:41 → ORTHO 4S 23:47
PROVIDERS: ADMIT Internal Medicine Critical Care Medicine; ATTEND Family Medicine
PROC: BW21YZZ Computerized Tomography (CT Scan) of Abdomen and Pelvis using Other Contrast (ICD-10-PCS; principal; 2023-10-24)
DX: T83.511A Infection and inflammatory reaction due to indwelling urethral catheter, initial encounter (principal); G93.41 Metabolic encephalopathy; N17.0 Acute kidney failure with tubular necrosis; F03.911 Unspecified dementia, unspecified severity, with agitation; I48.20 Chronic atrial fibrillation, unspecified; N39.0 Urinary tract infection, site not specified; N40.0 Benign prostatic hyperplasia without lower urinary tract symptoms; E88.09 Other disorders of plasma-protein metabolism, not elsewhere classified; I48.91 Unspecified atrial fibrillation; N40.1 Benign prostatic hyperplasia with lower urinary tract symptoms; R33.8 Other retention of urine; K59.09 Other constipation; I10 Essential (primary) hypertension; I25.10 Atherosclerotic heart disease of native coronary artery without angina pectoris; E87.6 Hypokalemia; E86.0 Dehydration; E78.5 Hyperlipidemia, unspecified; D64.9 Anemia, unspecified; Y84.6 Urinary catheterization as the cause of abnormal reaction of the patient, or of later complication, without mention of misadventure at the time of the procedure; Z79.01 Long term (current) use of anticoagulants; Y92.89 Other specified places as the place of occurrence of the external cause; Z79.899 Other long term (current) drug therapy; Z83.3 Family history of diabetes mellitus; Z87.440 Personal history of urinary (tract) infections
CPT/HCPCS: 36415; 71045; 74177; 80048; 80053; 83605; 83735; 84100; 84145; 85025; 87040; 87081; 93005; 96365; 97110; 97116; 97161; 97530; 97535; 99285; A4314; A4358; A5200; A6213; A6258; G0378; J2543; J3360; J7030; Q9967

== ENCOUNTER 2023-11-09 12:45 | Inpatient (IN) | payer MEDICARE ==
[~2023-11-09] VITALS: Ht 182.9 cm; Wt 78.8 kg
[2023-11-09] MEDS: normal saline 1000ml 1,000 ML IV ONE ×2 (13:44→15:36)
[2023-11-09 13:48] LABS: ALANINE AMINOTRANSFERASE 19 U/L (12-78); ALBUMIN 2.7 G/DL (3.4-5.0); ALBUMIN/GLOBULIN RATIO 0.8 (1.1-1.5); ALKALINE PHOSPHATASE 89 IU/L (46-116); ANION GAP 10 (8-16); ASPARTATE AMINO TRANSFERASE 28 U/L (10-37); BILIRUBIN,TOTAL 0.9 MG/DL (0.1-1.0); BLOOD UREA NITROGEN 23 MG/DL (7-18); BUN/CREATININE RATIO 18.5 (10.0-20.0); CALCIUM 9.2 MG/DL (8.5-10.1); CHLORIDE 106 MMOL/L (99-107); CREATININE 1.24 MG/DL (0.60-1.10); GLUCOSE 130 MG/DL (70-104); POTASSIUM 3.8 MMOL/L (3.5-5.1); SODIUM 139 MMOL/L (135-145); TOTAL CARBON DIOXIDE 22.8 MMOL/L (24-32); eCRCL 47 ML/MIN; eGFR 55 ML/MIN
[2023-11-09 13:51] LABS: BASOPHILS # (AUTO) 0.1 X10'3 (0-0.2); BASOPHILS % (AUTO) 0.3 % (0-1); EOSINOPHILS % (AUTO) 0 % (0-6); HEMATOCRIT 35.8 % (42.0-52.0); HEMOGLOBIN 11.8 g/dl (14.0-17.9); LYMPHOCYTES # (AUTO) 1.3 X10'3 (1.1-4.8); LYMPHOCYTES % (AUTO) 6.6 % (21-51); MEAN CORPUSCULAR VOLUME 96.8 FL (78-98); MEAN PLATELET VOLUME 8.8 FL (7.4-10.4); MONOCYTES # (AUTO) 1.5 X10'3 (0-0.9); MONOCYTES % (AUTO) 7.7 % (2-12); NEUTROPHILS # (AUTO) 16.2 X10'3 (1.8-7.7); NEUTROPHILS % (AUTO) 85.4 % (42-75); PLATELET COUNT 238 X10'3 (140-440); RED CELL DISTRIBUTION WIDTH 15.6 % (11.5-14.5); WHITE BLOOD COUNT 18.9 X10'3 (4.5-11.0)
[2023-11-09 14:03] LABS: CLARITY,URINE BLOODY (Clear); COLOR,URINE RED (Yellow); UA COLLECTION TYPE FOLEY CATH
[2023-11-09 14:10] LABS: BACTERIA,URINE 3+ /HPF (Neg); MUCUS STRANDS NONE SEEN /LPF (Neg); RBC,URINE TNTC /HPF (0-2); SQUAMOUS EPITHELIAL CELL,UR NONE SEEN /LPF (FEW); WBC CLUMPS,URINE MANY /HPF (NEGATIVE); WBC,URINE TNTC /HPF (0-4)
--- NOTE | 2023-11-09 14:14 | NUR ---
bladder scan showed >200ml - cath that was placed [employer] was adjusted and urine/blood return was noted in drainage bag. irrigation with approx 100ml of sterile water x 4 dislodged clots and provided clear return of same amount.
[2023-11-09] MEDS: acetaminophen 1,000mg/100ml IV 100 ML IV SCH (14:18)
[2023-11-09] MEDS: CefTRIAXone 2gm/D5W 50ml BAG 50 ML IV ONE (14:21)
[2023-11-09] MEDS: acetaminophen 325mg tablet PO ONE (14:22)
[2023-11-09] MEDS ORDERED: IRBE150T51 PO (18:00)
[2023-11-09] MEDS ORDERED: magnesium hydroxide 30ml (MOM) UD suspension PO PRN (18:25)
[2023-11-09] MEDS ORDERED: magnesium sulf-water 2g/50mL 50 ML IV PRN (18:25)
[2023-11-09] MEDS ORDERED: mag hydrox/Alum hydrox/simeth 30ml oral suspension PO PRN (18:25)
[2023-11-09] MEDS ORDERED: potassium Cl 20 mEq SR tablet PO PRN (18:25)
[2023-11-09] MEDS ORDERED: ondansetron/PF 4mg/2ml inj IV PRN (18:25)
[2023-11-09] MEDS ORDERED: docusate sod 100mg capsule PO PRN (18:25)
[2023-11-09] MEDS ORDERED: magnesium sulf-water 4G/100mL 100 ML IV PRN (18:25)
[2023-11-09] MEDS ORDERED: potassium Cl 40MEQ/1/2NS 520ml 520 ML IV PRN (18:25)
[2023-11-09] MEDS ORDERED: acetaminophen 325mg tablet PO PRN (18:25)
[2023-11-09] MEDS: normal saline 1000ml 1,000 ML IV SCH (19:35)
[2023-11-09] MEDS: K and/or MAG REPLACEMENT MC SCH (19:49)
[2023-11-09] MEDS ORDERED: heparin, porcine 5000 units/ml vial SQ SCH (20:00)
[2023-11-09 21:30] VITALS: BP 110/60; PULSE 73; RESP 16; RESP 18; TEMP 99; O2SAT 96
[2023-11-10 05:35] LABS: BASOPHILS # (AUTO) 0.2 X10'3 (0-0.2); BASOPHILS % (AUTO) 1.4 % (0-1); EOSINOPHILS # (AUTO) 0.1 X10'3 (0-0.9); EOSINOPHILS % (AUTO) 0.3 % (0-6); HEMOGLOBIN 10.7 g/dl (14.0-17.9); LYMPHOCYTES # (AUTO) 0.9 X10'3 (1.1-4.8); LYMPHOCYTES % (AUTO) 5.5 % (21-51); MEAN CORPUSCULAR HEMOGLOBIN 31.6 PG (27.0-31.0); MEAN CORPUSCULAR HGB CONC 33.4 g/dL (33.0-36.5); MEAN CORPUSCULAR VOLUME 94.5 FL (78-98); MEAN PLATELET VOLUME 8.7 FL (7.4-10.4); MONOCYTES % (AUTO) 6.3 % (2-12); NEUTROPHILS # (AUTO) 13.9 X10'3 (1.8-7.7); NEUTROPHILS % (AUTO) 86.5 % (42-75); PLATELET COUNT 207 X10'3 (140-440); RED BLOOD COUNT 3.38 X10'6 (4.70-6.10); RED CELL DISTRIBUTION WIDTH 15.7 % (11.5-14.5); WHITE BLOOD COUNT 16.1 X10'3 (4.5-11.0)
[2023-11-10 05:46] LABS: ALANINE AMINOTRANSFERASE 17 U/L (12-78); ALBUMIN 2.2 G/DL (3.4-5.0); ALBUMIN/GLOBULIN RATIO 0.7 (1.1-1.5); ALKALINE PHOSPHATASE 91 IU/L (46-116); ANION GAP 6 (8-16); ASPARTATE AMINO TRANSFERASE 23 U/L (10-37); BILIRUBIN,TOTAL 0.4 MG/DL (0.1-1.0); BLOOD UREA NITROGEN 21 MG/DL (7-18); BUN/CREATININE RATIO 26.6 (10.0-20.0); CALCIUM 8.7 MG/DL (8.5-10.1); CHLORIDE 110 MMOL/L (99-107); CREATININE 0.79 MG/DL (0.60-1.10); GLUCOSE 117 MG/DL (70-104); MAGNESIUM 1.7 MG/DL (1.5-2.4); POTASSIUM 3.5 MMOL/L (3.5-5.1); SODIUM 140 MMOL/L (135-145); TOTAL CARBON DIOXIDE 24.5 MMOL/L (24-32); TOTAL PROTEIN 5.2 G/DL (6.4-8.2); eCRCL 74 ML/MIN; eGFR > 90 ML/MIN
[2023-11-10 06:00] VITALS: BP 136/75; PULSE 71; RESP 18; TEMP 98.4; O2SAT 97
--- NOTE | 2023-11-10 06:12 | NUR ---
Patient in room [facility] 4020. I have received report from ZACARIAS Gray, and had the opportunity to ask questions and assume patient care.
--- NOTE | 2023-11-10 06:47 | NUR ---
Problems reprioritized. Patient report given, questions answered & plan of care reviewed with Prisca. Addendum: 11/10/23 at 0648 by Ricardo Saldana RN Amended: Links added.
[2023-11-10 10:00] VITALS: BP 139/76; PULSE 88; RESP 16; TEMP 97.8; O2SAT 95
[2023-11-10] MEDS: acetaminophen 325mg tablet PO PRN (11:45)
[2023-11-10] MEDS: CefTRIAXone 2gm/D5W 50ml BAG 50 ML IV SCH (14:40)
[2023-11-10 18:00] VITALS: BP 150/91; PULSE 70; RESP 18; TEMP 97.8; O2SAT 97
--- NOTE | 2023-11-10 18:39 | NUR ---
Problems reprioritized. Patient report given, questions answered & plan of care reviewed with ZACARIAS Hughes.
[2023-11-10 20:00] VITALS: RESP 18; O2SAT 97
[2023-11-10 22:00] VITALS: BP 108/84; PULSE 68; RESP 16; TEMP 98.5; O2SAT 97
[2023-11-11 05:49] LABS: BASOPHILS % (AUTO) 0.4 % (0-1); EOSINOPHILS # (AUTO) 0.2 X10'3 (0-0.9); EOSINOPHILS % (AUTO) 2.2 % (0-6); HEMATOCRIT 32.2 % (42.0-52.0); HEMOGLOBIN 10.7 g/dl (14.0-17.9); LYMPHOCYTES # (AUTO) 1.7 X10'3 (1.1-4.8); LYMPHOCYTES % (AUTO) 19.5 % (21-51); MEAN CORPUSCULAR HEMOGLOBIN 31.7 PG (27.0-31.0); MEAN CORPUSCULAR HGB CONC 33.3 g/dL (33.0-36.5); MEAN CORPUSCULAR VOLUME 95.2 FL (78-98); MEAN PLATELET VOLUME 8.3 FL (7.4-10.4); MONOCYTES # (AUTO) 0.8 X10'3 (0-0.9); MONOCYTES % (AUTO) 8.6 % (2-12); NEUTROPHILS % (AUTO) 69.3 % (42-75); PLATELET COUNT 211 X10'3 (140-440); RED BLOOD COUNT 3.38 X10'6 (4.70-6.10); RED CELL DISTRIBUTION WIDTH 15.3 % (11.5-14.5); WHITE BLOOD COUNT 8.7 X10'3 (4.5-11.0)
[2023-11-11 06:00] VITALS: BP 157/72; PULSE 69; RESP 18; TEMP 98.3; O2SAT 96
[2023-11-11 06:18] LABS: ALANINE AMINOTRANSFERASE 16 U/L (12-78); ALBUMIN/GLOBULIN RATIO 0.7 (1.1-1.5); ALKALINE PHOSPHATASE 82 IU/L (46-116); ANION GAP 7 (8-16); ASPARTATE AMINO TRANSFERASE 22 U/L (10-37); BILIRUBIN,TOTAL 0.3 MG/DL (0.1-1.0); BLOOD UREA NITROGEN 19 MG/DL (7-18); BUN/CREATININE RATIO 32.2 (10.0-20.0); CALCIUM 8.6 MG/DL (8.5-10.1); CHLORIDE 112 MMOL/L (99-107); CREATININE 0.59 MG/DL (0.60-1.10); GLUCOSE 81 MG/DL (70-104); MAGNESIUM 1.6 MG/DL (1.5-2.4); POTASSIUM 3.3 MMOL/L (3.5-5.1); SODIUM 143 MMOL/L (135-145); TOTAL CARBON DIOXIDE 24.3 MMOL/L (24-32); TOTAL PROTEIN 4.9 G/DL (6.4-8.2); eCRCL 99 ML/MIN; eGFR > 90 ML/MIN
--- NOTE | 2023-11-11 06:19 | NUR ---
Patient in room [facility]TH[facility] 4020. I have received report from ZACARIAS Hughes, and had the opportunity to ask questions and assume patient care.
[2023-11-11] MEDS: dextrose 5%-water 1,000 ML IV SCH (08:03)
[2023-11-11] MEDS: magnesium sulf-water 2g/50mL 50 ML IV ONE (08:03)
[2023-11-11] MEDS: potassium Cl 20 mEq SR tablet PO PRN (08:04)
[2023-11-11 10:00] VITALS: BP 176/93; PULSE 69; RESP 17; TEMP 97.5; O2SAT 96
[2023-11-11] MEDS ORDERED: CIPR-202 PO (11:01)
[2023-11-11] MEDS ORDERED: LABE100T8 PO (11:01)
[2023-11-11] MEDS: labetalol 100mg tablet PO SCH (11:18)
--- NOTE | 2023-11-11 11:32 | NUR ---
On hourly rounding, patient was observed sitting in side chair with Dumont tubing detached from catheter and IV line detached. Reattached Dumont and applied a Statlock. IV left detached, as patient to discharge.
[2023-11-11] MEDS ORDERED: LORazepam 2 mg/ml vial IV ONE (12:55)
--- NOTE | 2023-11-11 13:09 | NUR ---
Notified by charge, iMmi ADAMES, that patient is insistent on leaving his room and somewhat combative, swinging at AVP and charge. Called clinician who ordered Ativan 0.25 mg IV one-time dose, which was given.
--- NOTE | 2023-11-11 19:12 | NUR ---
Patient discharged in stable condition, accompanied by daughter. VS stable. IV d/c'd. Personal belongings in hand. Discharge instructions reviewed with patient's daughter who demonstrated understanding.
== END 2023-11-11 14:45 | disposition home or self-care (01) | DRG 871 ==
LOC: ER 12:46 → ORTHO 4S 18:43
PROVIDERS: ADMIT Nurse Practitioner Family; ATTEND Nurse Practitioner Family
DX: A41.9 Sepsis, unspecified organism (principal); G93.41 Metabolic encephalopathy; N39.0 Urinary tract infection, site not specified; N17.9 Acute kidney failure, unspecified; Z66 Do not resuscitate; I10 Essential (primary) hypertension; I25.10 Atherosclerotic heart disease of native coronary artery without angina pectoris; F03.90 Unspecified dementia, unspecified severity, without behavioral disturbance, psychotic disturbance, mood disturbance, and anxiety; N40.1 Benign prostatic hyperplasia with lower urinary tract symptoms; R33.8 Other retention of urine; Z83.3 Family history of diabetes mellitus; Z79.899 Other long term (current) drug therapy; Z87.440 Personal history of urinary (tract) infections; B95.2 Enterococcus as the cause of diseases classified elsewhere
CPT/HCPCS: 36415; 71045; 80053; 81001; 83735; 85025; 87077; 87081; 87088; 87186; 97161; 97530; 97535; 99285; A4314; A4340; A4346; A4358; A5200; G0378; J0131; J0696; J7030; J7042; J7070